=== PATIENT | male | born 1980 | race African-American/Black ===

== ENCOUNTER 2021-04-03 13:59 | Inpatient (IN) ==
[2021-04-03] MEDS ORDERED: SODIUM CHLORIDE 0.9% 1,000 ML IV STA (14:32)
[2021-04-03] MEDS ORDERED: ACETAMINOPHEN 500 MG TABLET PO STA (14:34)
[2021-04-03 15:01] LABS: Basophils % 0.2 % (0.0-0.8); Hematocrit 48.4 VOL% (42.0-52.0); Hemoglobin 15.3 GM/DL (14.0-18.0); Immature Granulocytes % 0.5 %; Immature Granulocytes Absolute 0.03 #; Lymphocytes % 17.1 % (21.2-54.2); Mean Corpuscular HGB Conc 31.6 GM/DL (32-36); Mean Corpuscular Volume 86.1 FL (87-102); Mean Platelet Volume 11.1 FL (9.6-12.0); Monocytes % 9.4 % (1.7-12.7); Neutrophils % 72.8 % (38.7-73.9); Platelet Count 179 T/CUMM (130-400); Red Blood Count 5.62 MC/CUMM (3.8-5.5); Red Cell Distribution Width 13.6 % (9.3-17.3); White Blood Count 5.6 T/CUMM (4-12)
[2021-04-03 15:11] LABS: INR 1.1; PT Patient Result 11.8 SECS (10.5-12.0)
[2021-04-03 15:23] LABS: Albumin 3.5 G/DL (3.4-5.0); Bilirubin,Total 1.7 MG/DL (0.20-1.00); Calcium 8.1 MG/DL (8.5-10.1); Osmolality,Calculated 267.4 MOS/KG (273-304); Potassium 3.5 MMOL/L (3.5-5.1); Total Protein 7.8 G/DL (6.4-8.2)
[2021-04-03 16:34] LABS: Bacteria,Urine Occasional /HPF (Few); Bilirubin,Urine Negative (Negative); Blood, Urine Negative (Negative); Glucose,Urine (UA) Negative (Negative); Ketones,Urine Negative (Negative); Nitrite,Urine Negative (Negative); Protein,Urine Negative; RBC,Urine 2 /HPF (0-4); Squamous Epithelial Cell,Urine Occasional /HPF (0-10); Urine Appearance CLEAR (Clear); Urine Color Yellow (Yellow); Urine Specific Gravity 1.006 (1.001-1.035)
[2021-04-03 16:59] LABS: Barbiturates Screen,Urine Negative (Negative); Benzodiazepines Screen,Urine Negative (Negative); Cannabinoid Screen,Urine Negative (Negative); Opiate Screen,Urine Negative (Negative); Phencyclidine Screen,Urine Negative (Negative)
[2021-04-03] MEDS ORDERED: GLUCAGON 1 MG VIAL IM PRN (17:31)
[2021-04-03] MEDS ORDERED: hydrALAZINE 20 MG/1 ML VIAL IV PRN (17:31)
[2021-04-03] MEDS ORDERED: ONDANSETRON 4 MG/2 ML VIAL IV PRN (17:31)
[2021-04-03] MEDS ORDERED: DEXTROSE 50% 25 GM/50 ML VIAL IV PRN (17:31)
[2021-04-03] MEDS ORDERED: AZITHROMYCIN INJ 500 MG in SODIUM CHLORIDE 0.9% 250 ML IV ONE (17:34)
[2021-04-03] MEDS: SODIUM CHLORIDE 0.9% 1,000 ML IV SCH (18:40)
[2021-04-03] MEDS: cefTRIAXone 1,000 MG in SODIUM CHLORIDE 0.9% 100 ML IV SCH (18:42)
[2021-04-03] MEDS: FAMOTIDINE 20 MG TABLET PO SCH (22:00)
[2021-04-03] MEDS: ASCORBIC ACID 500 MG TABLET PO SCH (22:00)
[2021-04-03] MEDS: ENOXAPARIN 40 MG/0.4 ML SYRINGE SUBCUT SCH (22:00)
[2021-04-04 03:54] LABS: Hematocrit 45.4 VOL% (42.0-52.0); Hemoglobin 14.4 GM/DL (14.0-18.0); Immature Granulocytes % 0.2 %; Immature Granulocytes Absolute 0.01 #; Lymphocytes # 0.8 10*3/uL (1.4-4.0); Lymphocytes % 20.1 % (21.2-54.2); Mean Corpuscular HGB Conc 31.7 GM/DL (32-36); Mean Corpuscular Volume 86.3 FL (87-102); Mean Platelet Volume 10.8 FL (9.6-12.0); Monocytes % 10.4 % (1.7-12.7); Neutrophils % 69.3 % (38.7-73.9); Platelet Count 155 T/CUMM (130-400); Red Blood Count 5.26 MC/CUMM (3.8-5.5); Red Cell Distribution Width 13.6 % (9.3-17.3)
[2021-04-04 04:15] LABS: Bilirubin,Total 0.8 MG/DL (0.20-1.00); Calcium 7.4 MG/DL (8.5-10.1); Osmolality,Calculated 272.8 MOS/KG (273-304); Potassium 3.7 MMOL/L (3.5-5.1); Total Protein 6.9 G/DL (6.4-8.2)
[2021-04-04 04:21] LABS: Ferritin 1800.6 ng/ml (26-388)
[2021-04-04] MEDS: SODIUM CHLORIDE 0.9% 1,000 ML IV SCH ×3 (05:54→17:00)
[2021-04-04] MEDS: AZITHROMYCIN 250 MG TABLET PO SCH (08:39)
[2021-04-04] MEDS: CETIRIZINE 10 MG TABLET PO SCH (08:39)
[2021-04-04] MEDS: ASCORBIC ACID 500 MG TABLET PO SCH ×2 (08:39→21:53)
[2021-04-04] MEDS: FAMOTIDINE 20 MG TABLET PO SCH ×2 (08:39→21:53)
[2021-04-04] MEDS: ZINC GLUCONATE 50 MG TABLET PO SCH (08:39)
[2021-04-04] MEDS: CHOLECALCIFEROL 1,000 UNIT TABLET PO SCH (08:39)
[2021-04-04] MEDS: ENOXAPARIN 40 MG/0.4 ML SYRINGE SUBCUT SCH ×2 (08:40→21:53)
[2021-04-04] MEDS: DEXAMETHASONE 4 MG/1 ML VIAL IV SCH (08:41)
[2021-04-04] MEDS ORDERED: REMDESIVIR 200 MG in SODIUM CHLORIDE 0.9% 210 ML IV ONE (09:00)
[2021-04-04] MEDS: cefTRIAXone 1,000 MG in SODIUM CHLORIDE 0.9% 100 ML IV SCH (18:01)
[2021-04-05] MEDS: SODIUM CHLORIDE 0.9% 1,000 ML IV SCH ×2 (03:10→10:43)
[2021-04-05 05:43] LABS: Basophils % 0.3 % (0.0-0.8); Hematocrit 42.3 VOL% (42.0-52.0); Hemoglobin 13.4 GM/DL (14.0-18.0); Immature Granulocytes % 0.8 %; Immature Granulocytes Absolute 0.03 #; Lymphocytes # 1.1 10*3/uL (1.4-4.0); Lymphocytes % 29.8 % (21.2-54.2); Mean Corpuscular HGB Conc 31.7 GM/DL (32-36); Mean Corpuscular Volume 86.7 FL (87-102); Mean Platelet Volume 11.2 FL (9.6-12.0); Monocytes % 9.8 % (1.7-12.7); Neutrophils % 59.3 % (38.7-73.9); Platelet Count 148 T/CUMM (130-400); Red Blood Count 4.88 MC/CUMM (3.8-5.5); Red Cell Distribution Width 13.6 % (9.3-17.3); White Blood Count 3.6 T/CUMM (4-12)
[2021-04-05 06:23] LABS: Ferritin 2423.9 ng/ml (26-388); Osmolality,Calculated 269.1 MOS/KG (273-304); Potassium 3.5 MMOL/L (3.5-5.1)
[2021-04-05] MEDS: CHOLECALCIFEROL 1,000 UNIT TABLET PO SCH (08:44)
[2021-04-05] MEDS: AZITHROMYCIN 250 MG TABLET PO SCH (08:44)
[2021-04-05] MEDS: ZINC GLUCONATE 50 MG TABLET PO SCH (08:44)
[2021-04-05] MEDS: ASCORBIC ACID 500 MG TABLET PO SCH ×2 (08:44→21:24)
[2021-04-05] MEDS: ENOXAPARIN 40 MG/0.4 ML SYRINGE SUBCUT SCH ×2 (08:44→21:23)
[2021-04-05] MEDS: CETIRIZINE 10 MG TABLET PO SCH (08:45)
[2021-04-05] MEDS: ACETAMINOPHEN 325 MG TABLET PO PRN (08:45)
[2021-04-05] MEDS: FAMOTIDINE 20 MG TABLET PO SCH ×2 (08:45→21:23)
[2021-04-05] MEDS: DEXAMETHASONE 4 MG/1 ML VIAL IV SCH (08:45)
[2021-04-05] MEDS: REMDESIVIR 100 MG in SODIUM CHLORIDE 0.9% 100 ML IV SCH (10:43)
[2021-04-05] MEDS: cefTRIAXone 1,000 MG in SODIUM CHLORIDE 0.9% 100 ML IV SCH (17:56)
[2021-04-06] MEDS: SODIUM CHLORIDE 0.9% 1,000 ML IV SCH ×2 (03:09→10:05)
[2021-04-06 06:14] LABS: Hematocrit 41.4 VOL% (42.0-52.0); Hemoglobin 13.5 GM/DL (14.0-18.0); Immature Granulocytes % 0.4 %; Immature Granulocytes Absolute 0.01 #; Mean Corpuscular HGB Conc 32.6 GM/DL (32-36); Mean Corpuscular Volume 85.9 FL (87-102); Monocytes % 13.7 % (1.7-12.7); Neutrophils % 50.9 % (38.7-73.9); Platelet Count 135 T/CUMM (130-400); Red Blood Count 4.82 MC/CUMM (3.8-5.5); Red Cell Distribution Width 13.4 % (9.3-17.3); White Blood Count 2.8 T/CUMM (4-12)
[2021-04-06 06:33] LABS: Anisocytosis 1+; Macrocytosis 1+; Platelet Estimate Adequate
[2021-04-06 06:57] LABS: Calcium 8.3 MG/DL (8.5-10.1); Ferritin 1876.4 ng/ml (26-388); Potassium 3.8 MMOL/L (3.5-5.1)
[2021-04-06] MEDS: REMDESIVIR 100 MG in SODIUM CHLORIDE 0.9% 100 ML IV SCH (09:20)
[2021-04-06] MEDS: AZITHROMYCIN 250 MG TABLET PO SCH (09:20)
[2021-04-06] MEDS: ENOXAPARIN 40 MG/0.4 ML SYRINGE SUBCUT SCH ×2 (09:20→21:29)
[2021-04-06] MEDS: CETIRIZINE 10 MG TABLET PO SCH (09:21)
[2021-04-06] MEDS: CHOLECALCIFEROL 1,000 UNIT TABLET PO SCH (09:21)
[2021-04-06] MEDS: ASCORBIC ACID 500 MG TABLET PO SCH ×2 (09:21→21:30)
[2021-04-06] MEDS: ZINC GLUCONATE 50 MG TABLET PO SCH (09:21)
[2021-04-06] MEDS: ACETAMINOPHEN 325 MG TABLET PO PRN (09:21)
[2021-04-06] MEDS: FAMOTIDINE 20 MG TABLET PO SCH ×2 (09:21→21:30)
[2021-04-06] MEDS: DEXAMETHASONE 4 MG/1 ML VIAL IV SCH (10:43)
[2021-04-06] MEDS: cefTRIAXone 1,000 MG in SODIUM CHLORIDE 0.9% 100 ML IV SCH (18:11)
[2021-04-07 06:44] LABS: Eosinophils % 0.4 % (0.00-10.9); Hematocrit 43.5 VOL% (42.0-52.0); Hemoglobin 13.7 GM/DL (14.0-18.0); Immature Granulocytes % 0.4 %; Immature Granulocytes Absolute 0.01 #; Lymphocytes # 0.8 10*3/uL (1.4-4.0); Lymphocytes % 31.4 % (21.2-54.2); Mean Corpuscular HGB Conc 31.5 GM/DL (32-36); Mean Corpuscular Volume 86.7 FL (87-102); Mean Platelet Volume 12.3 FL (9.6-12.0); Monocytes % 16.7 % (1.7-12.7); Neutrophils % 51.1 % (38.7-73.9); Platelet Count 125 T/CUMM (130-400); Red Blood Count 5.02 MC/CUMM (3.8-5.5); Red Cell Distribution Width 13.4 % (9.3-17.3); White Blood Count 2.6 T/CUMM (4-12)
[2021-04-07 06:48] LABS: Calcium 8.4 MG/DL (8.5-10.1); Ferritin 1273.7 ng/ml (26-388); Osmolality,Calculated 267.2 MOS/KG (273-304)
[2021-04-07 07:10] LABS: Anisocytosis Slight; Band Neutrophils 14 % (0-10); Burr Cells Few; Lymphocytes 31 % (20-55); Platelet Estimate Adequate; Segmented Neutrophils 40 % (50-85); Total Cells Counted 100
[2021-04-07] MEDS: REMDESIVIR 100 MG in SODIUM CHLORIDE 0.9% 100 ML IV SCH (09:28)
[2021-04-07] MEDS: DEXAMETHASONE 4 MG/1 ML VIAL IV SCH (09:28)
[2021-04-07] MEDS: CHOLECALCIFEROL 1,000 UNIT TABLET PO SCH (09:29)
[2021-04-07] MEDS: AZITHROMYCIN 250 MG TABLET PO SCH (09:29)
[2021-04-07] MEDS: FAMOTIDINE 20 MG TABLET PO SCH ×2 (09:29→21:51)
[2021-04-07] MEDS: CETIRIZINE 10 MG TABLET PO SCH (09:29)
[2021-04-07] MEDS: ZINC GLUCONATE 50 MG TABLET PO SCH (09:29)
[2021-04-07] MEDS: ENOXAPARIN 40 MG/0.4 ML SYRINGE SUBCUT SCH ×2 (09:30→21:51)
[2021-04-07] MEDS: ASCORBIC ACID 500 MG TABLET PO SCH ×2 (09:30→21:51)
[2021-04-07] MEDS: cefTRIAXone 1,000 MG in SODIUM CHLORIDE 0.9% 100 ML IV SCH (17:12)
[2021-04-08 08:08] LABS: Hematocrit 45.5 VOL% (42.0-52.0); Hemoglobin 14.5 GM/DL (14.0-18.0); Immature Granulocytes % 0.7 %; Immature Granulocytes Absolute 0.03 #; Lymphocytes # 1.2 10*3/uL (1.4-4.0); Lymphocytes % 26.8 % (21.2-54.2); Mean Corpuscular HGB Conc 31.9 GM/DL (32-36); Mean Platelet Volume 10.7 FL (9.6-12.0); Monocytes % 17.2 % (1.7-12.7); Neutrophils % 55.3 % (38.7-73.9); Platelet Count 246 T/CUMM (130-400); Red Blood Count 5.23 MC/CUMM (3.8-5.5); Red Cell Distribution Width 13.3 % (9.3-17.3); White Blood Count 4.5 T/CUMM (4-12)
[2021-04-08 08:27] LABS: Calcium 8.7 MG/DL (8.5-10.1); Ferritin 1045.2 ng/ml (26-388); Osmolality,Calculated 270.1 MOS/KG (273-304); Potassium 3.8 MMOL/L (3.5-5.1)
[2021-04-08 08:28] LABS: Band Neutrophils 3 % (0-10); Lymphocytes 21 % (20-55); Segmented Neutrophils 58 % (50-85); Total Cells Counted 100
[2021-04-08 08:32] LABS: Hypochromasia 2+
[2021-04-08 08:35] LABS: Microcytosis 1+
[2021-04-08 08:36] LABS: Platelet Estimate Normal
[2021-04-08] MEDS ORDERED: DEXAMETHASONE 4 MG TABLET PO SCH (09:00)
[2021-04-08] MEDS: ZINC GLUCONATE 50 MG TABLET PO SCH (10:02)
[2021-04-08] MEDS: CHOLECALCIFEROL 1,000 UNIT TABLET PO SCH (10:02)
[2021-04-08] MEDS: FAMOTIDINE 20 MG TABLET PO SCH (10:02)
[2021-04-08] MEDS: REMDESIVIR 100 MG in SODIUM CHLORIDE 0.9% 100 ML IV SCH (10:03)
[2021-04-08] MEDS: ASCORBIC ACID 500 MG TABLET PO SCH (10:03)
[2021-04-08] MEDS: CETIRIZINE 10 MG TABLET PO SCH (10:03)
[2021-04-08] MEDS: ENOXAPARIN 40 MG/0.4 ML SYRINGE SUBCUT SCH (10:04)
[2021-04-08 16:17] VITALS: BP 123/80
[2021-04-08] MEDS: cefTRIAXone 1,000 MG in SODIUM CHLORIDE 0.9% 100 ML IV SCH (17:57)
== END 2021-04-08 19:01 | disposition home or self-care (01) | DRG 177 ==
LOC: EDUNIT# → EDBD → N.ED 13:59 → N.EDINP 17:31 → SUATTDRO 17:31 → N.EDINP 04-04 15:05 → N.2E 04-04 15:55
PROVIDERS: ADMIT Internal Medicine; ATTEND Internal Medicine